=== PATIENT | male | born 1950 | race Caucasian/White ===

== ENCOUNTER 2021-10-27 21:26 | Emergency (ER) | payer MEDICARE, OTHER, SELFPAY ==
--- NOTE | 2021-10-27 21:35 | ED.PSYCH ---
HPI - Psych <Serafin Anderson DO - Last Filed: 11/09/21 04:35> General Chief Complaint: Psychiatric Symptoms Stated Complaint: SI Time Seen by Provider: 10/27/21 21:31 History of Present Illness HPI Narrative: 71-year-old male nonsmoker presents with police escort due to suicidal ideation with a plan. He had been at the [facility] contemplating jumping for a few hours and was discovered by police and brought here. He admits to thoughts of suicide and feeling overwhelmed. He states that his had found out about more than 1 extramarital affair and the possibility of a child as a consequence of 1 of these affairs. He recently initiated the process of divorce and left their home in [place] and is living in an apartment. He states he has very little in the way of support. He had at various times in his life been seen by a mental health provider and had been on various antidepressants but has not been on anything in the past few months. He does have a firearm at home but states it is not functioning. He admits that he is a pathological liar and states that he feels hopeless and just wants to . Related Data Home Medications Medication Instructions Recorded Confirmed brinzolamide 1 %-brimonidine 0.2 % 1 drp EYE-BOTH DAILY 10/28/21 10/28/21 eye drops,suspension (Simbrinza) simvastatin 40 mg tablet 40 mg PO QPM 10/28/21 10/28/21 Allergies Allergy/AdvReac Type Severity Reaction Status Date / Time No Known Drug Allergies Allergy Verified 10/29/21 08:05 Review of Systems <Serafin Anderson DO - Last Filed: 11/09/21 04:35> Review of Systems Narrative: GENERAL: Denies chills, fatigue, malaise, fever, sweats. HEENT: Denies sinus pain, ear pain, sore throat, difficulty swallowing, dizziness. RESPIRATORY: Denies dyspnea, cough, wheezing, hemoptysis, sputum. CARDIOVASCULAR: Denies chest pain, palpitations, orthopnea, edema, GASTROINTESTINAL: Denies nausea, vomiting, abdominal pain, diarrhea, constipation, melena. : Denies dysuria, frequency, incontinence, hematuria, urinary retention. MUSCULOSKELETAL: denies weakness, joint pain, or bony pain SKIN: Denies rash, skin lesions, or other NEUROLOGIC: Denies weakness, headache, numbness, change in speech, confusion, seizures, incoordination. PSYCHIATRIC: See HPI 12 point review of systems is negative except for those stated above Exam <Serafin Anderson DO - Last Filed: 11/09/21 04:35> Narrative Exam Narrative: GENERAL: [71] year old patient appears stated age. Well-developed patient, in mild distress. HEAD: Atraumatic. Normocephalic. EYES: Pupils equal round and reactive. Extraocular motions intact. No scleral icterus. No injection or drainage. ENT: Nose without bleeding, purulent drainage. Throat without erythema, tonsillar hypertrophy or exudate. Airway patent. NECK: Trachea midline. Non tender CARDIOVASCULAR: Regular rate and rhythm without murmurs, gallops, or rubs. RESPIRATORY: Clear to auscultation. Breath sounds equal bilaterally. No wheezes, rales, or rhonchi. GASTROINTESTINAL: Abdomen soft, non-tender, nondistended. EXTREMITIES: No edema or joint tenderness. BACK: Nontender without deformity or crepitance. No flank tenderness. NEURO: AOx3. SKIN: No rash or erythema of visible areas Initial Vital Signs Initial Vital Signs: Vital Signs Temperature 98.7 F 10/27/21 21:45 Pulse Rate 72 10/27/21 21:45 Respiratory Rate 16 10/27/21 21:45 Blood Pressure 181/84 H 10/27/21 21:45 Pulse Oximetry 97 10/27/21 21:45 Oxygen Delivery Method 10/27/21 21:45 <Thai Mejia MD - Last Filed: 11/10/21 07:19> Initial Vital Signs Initial Vital Signs: Vital Signs Temperature 98.7 F 10/27/21 21:45 Pulse Rate 72 10/27/21 21:45 Respiratory Rate 16 10/27/21 21:45 Blood Pressure 181/84 H 10/27/21 21:45 Pulse Oximetry 97 10/27/21 21:45 Oxygen Delivery Method 10/27/21 21:45 <Chester Marley DO - Last Filed: 10/29/21 02:15> Initial Vital Signs Initial Vital Signs: Vital Signs Temperature 98.7 F 10/27/21 21:45 Pulse Rate 72 10/27/21 21:45 Respiratory Rate 16 10/27/21 21:45 Blood Pressure 181/84 H 10/27/21 21:45 Pulse Oximetry 97 10/27/21 21:45 Oxygen Delivery Method 10/27/21 21:45 Course <Serafin Anderson DO - Last Filed: 11/09/21 04:35> Orders Ordered: Discontinued Medications Alprazolam (Alprazolam 0.5 Mg Tablet) 0.5 mg PO BEDTIME [facility] Last Admin: 10/28/21 20:30 Dose: 0.5 mg Documented By: RL Atorvastatin Calcium (Atorvastatin 20 Mg Tablet) 40 mg PO NOW ONE Stop: 10/28/21 16:53 Last Admin: 10/28/21 17:18 Dose: 40 mg Documented By: RL Brimonidine Tartrate (Brimonidine 0.2% Ophth 5 Ml) 1 drops EYE-BOTH TID [facility] Last Admin: 10/29/21 08:05 Dose: 1 drops Documented By: Admin: 10/28/21 20:30 Dose: 1 drops Documented By: Admin: 10/28/21 20:29 Dose: Not Given Documented By: CATHLEEN Vital Signs Vital signs: Vital Signs - 8 hr 10/28/21 23:11 Temperature 97.7 F Pulse Rate 59 L Respiratory Rate 18 Blood Pressure 120/62 Oxygen Delivery Method Room Air <Thai Mejia MD - Last Filed: 11/10/21 07:19> Course Course Narrative: October 28, 2021 at 7:00 a.m.. Sign out from Dr. Anderson, awaiting for social work evaluation. Patient has been medically cleared. 8:15 a.m.. I introduced myself to patient. He is in no distress. The understands we have to wait for social work to arrive this morning. Awaiting for evaluation. 6:00 p.m.. Sign out to Dr. Marley patient boarding overnight waiting for bed in the morning. Nighttime Xanax has been ordered for tonight to help him sleep. Orders Ordered: Discontinued Medications Alprazolam (Alprazolam 0.5 Mg Tablet) 0.5 mg PO BEDTIME [facility] Last Admin: 10/28/21 20:30 Dose: 0.5 mg Documented By: CATHLEEN Atorvastatin Calcium (Atorvastatin 20 Mg Tablet) 40 mg PO NOW ONE Stop: 10/28/21 16:53 Last Admin: 10/28/21 17:18 Dose: 40 mg Documented By: CATHLEEN Brimonidine Tartrate (Brimonidine 0.2% Ophth 5 Ml) 1 drops EYE-BOTH TID [facility] Last Admin: 10/29/21 08:05 Dose: 1 drops Documented By: Admin: 10/28/21 20:30 Dose: 1 drops Documented By: Admin: 10/28/21 20:29 Dose: Not Given Documented By: CATHLEEN Reevaluation(s) Reevaluation #1: Patient in room in no distress at this time. Understands treatment plan to stay overnight and transferred tomorrow to [facility] Time: 18:32 Consultations Consultation #1: Spoke with patient and as well as psychiatric social worker/Maureen, at this time, patient has been accepted at [facility] in [place], bed available 10:00 a.m. tomorrow. They do understand need to stay overnight a more day. We will transport patient tomorrow. Time: 17:29 Vital Signs Vital signs: Vital Signs - 8 hr 10/28/21 23:11 Temperature 97.7 F Pulse Rate 59 L Respiratory Rate 18 Blood Pressure 120/62 Oxygen Delivery Method Room Air <Chester Marley DO - Last Filed: 10/29/21 02:15> Orders Ordered: Discontinued Medications Alprazolam (Alprazolam 0.5 Mg Tablet) 0.5 mg PO BEDTIME [facility] Last Admin: 10/28/21 20:30 Dose: 0.5 mg Documented By: CATHLEEN Atorvastatin Calcium (Atorvastatin 20 Mg Tablet) 40 mg PO NOW ONE Stop: 10/28/21 16:53 Last Admin: 10/28/21 17:18 Dose: 40 mg Documented By: CATHLEEN Brimonidine Tartrate (Brimonidine 0.2% Ophth 5 Ml) 1 drops EYE-BOTH TID [facility] Last Admin: 10/29/21 08:05 Dose: 1 drops Documented By: Admin: 10/28/21 20:30 Dose: 1 drops Documented By: Admin: 10/28/21 20:29 Dose: Not Given Documented By: CATHLEEN Vital Signs Vital signs: Vital Signs - 8 hr 10/28/21 23:11 Temperature 97.7 F Pulse Rate 59 L Respiratory Rate 18 Blood Pressure 120/62 Oxygen Delivery Method Room Air MDM - Psych <Serafin Anderson DO - Last Filed: 11/09/21 04:35> Lab Data Result diagrams: 10/27/21 21:55 10/27/21 21:55 Labs: Lab Results 10/27/21 10/27/21 10/27/21 Range/Units 21:55 21:55 21:55 WBC 10.0 (4.5-11.0) X10^3/uL RBC 4.44 L (4.5-5.9) X10^6/uL Hgb 13.9 (13.5-17.5) g/dL Hct 40.3 L (41-53) % MCV 90.8 (80-100) fL MCH 31.4 (26-34) PG MCHC 34.6 (30-36) % RDW 13.1 (11.6-14.8) % Plt Count 233 (150-400) X10^3/uL Neut % (Auto) 85.8 H (50-75) % Lymph % (Auto) 7.2 L (25-40) % [place] % (Auto) 4.5 (3-14) % Eos % (Auto) 0.8 L (2-4) % Baso % (Auto) 1.7 (0-2) % Neut # (Auto) 8600 H (9882-6406) /uL Lymph # (Auto) 700 L (2853-2841) /uL [place]calfe # (Auto) 500 (0-900) /uL Eos # (Auto) 100 (0-450) /uL Baso # (Auto) 200 H (0-100) /uL Sodium 140 (137-145) mmol/L Potassium 3.9 (3.4-5.1) mmol/L Chloride 107 (98-107) mmol/L Carbon Dioxide 22 (22-32) mmol/L BUN 14 (9-20) mg/dL Creatinine 0.90 (0.66-1.25) mg/dL Estimated GFR > 60 (>60) mL/min BUN/Creatinine Ratio 15.6 (6-22) Glucose 136 H (80-110) mg/dL Calcium 9.2 (8.4-10.2) mg/dL Total Bilirubin 0.8 (0.2-1.3) mg/dL AST 42 (17-59) IU/L ALT 30 (<50) IU/L Alkaline Phosphatase 42 (38-126) U/L Total Protein 8.0 (6.3-8.2) g/dL Albumin 4.8 (3.5-5.0) g/dL Globulin 3.2 (1.7-4.1) g/dL Albumin/Globulin Ratio 1.5 (1.0-2.8) TSH 0.71 (0.47-4.68) uIU/mL U Opiates 300ng/mL cut (Negative) Ur Oxycodone Screen (Negative) Urine Methadone Screen (Negative) Ur Barbiturates Screen (Negative) U Tricyclic Antidepress (Negative) Ur Phencyclidine Scrn (Negative) Ur Amphetamines Screen (Negative) U Methamphetamines Scrn (Negative) Ur MDMA Scrn (Ecstasy) (Negative) U Benzodiazepines Scrn (Negative) Urine Cocaine Screen (Negative) U Marijuana (THC) Screen (Negative) Ethyl Alcohol < 10 ( - 10) mg/dL SARS-CoV-2 (PCR) (Negative) 10/27/21 10/27/21 Range/Units 21:55 21:55 WBC (4.5-11.0) X10^3/uL RBC (4.5-5.9) X10^6/uL Hgb (13.5-17.5) g/dL Hct (41-53) % MCV (80-100) fL MCH (26-34) PG MCHC (30-36) % RDW (11.6-14.8) % Plt Count (150-400) X10^3/uL Neut % (Auto) (50-75) % Lymph % (Auto) (25-40) % [place] % (Auto) (3-14) % Eos % (Auto) (2-4) % Baso % (Auto) (0-2) % Neut # (Auto) (7098-1476) /uL Lymph # (Auto) (0669-2833) /uL Metcalfe # (Auto) (0-900) /uL Eos # (Auto) (0-450) /uL Baso # (Auto) (0-100) /uL Sodium (137-145) mmol/L Potassium (3.4-5.1) mmol/L Chloride (98-107) mmol/L Carbon Dioxide (22-32) mmol/L BUN (9-20) mg/dL Creatinine (0.66-1.25) mg/dL Estimated GFR (>60) mL/min BUN/Creatinine Ratio (6-22) Glucose (80-110) mg/dL Calcium (8.4-10.2) mg/dL Total Bilirubin (0.2-1.3) mg/dL AST (17-59) IU/L ALT (<50) IU/L Alkaline Phosphatase (38-126) U/L Total Protein (6.3-8.2) g/dL Albumin (3.5-5.0) g/dL Globulin (1.7-4.1) g/dL Albumin/Globulin Ratio (1.0-2.8) TSH (0.47-4.68) uIU/mL U Opiates 300ng/mL cut Negative (Negative) Ur Oxycodone Screen Negative (Negative) Urine Methadone Screen Negative (Negative) Ur Barbiturates Screen Negative (Negative) U Tricyclic Antidepress Negative (Negative) Ur Phencyclidine Scrn Negative (Negative) Ur Amphetamines Screen Negative (Negative) U Methamphetamines Scrn Negative (Negative) Ur MDMA Scrn (Ecstasy) Negative (Negative) U Benzodiazepines Scrn Negative (Negative) Urine Cocaine Screen Negative (Negative) U Marijuana (THC) Screen Negative (Negative) Ethyl Alcohol ( - 10) mg/dL SARS-CoV-2 (PCR) Negative (Negative) Urine Dip Bedside Urine Glucose Negative Bedside Urine Bilirubin - Negative Bedside Urine Ketone +/- 5 Urine Specific [place] 1.030 Bedside Urine Occult Blood - Negative Bedside Urine pH 5.5 Bedside Urine Protein - Negative Bedside Urine Urobilinogen - Negative Bedside Urine Nitrite - Negative Bedside Urine Leukocytes - Negative Esterase MDM Narrative Medical decision making narrative: Patient presents by police escort [place] [address] [place]. He is here of his own volition. He is medically cleared and social work consultation has been ordered. Patient signed out to Dr. Mejia for final disposition <Thai Mejia MD - Last Filed: 11/10/21 07:19> Differential Diagnosis Differential diagnosis: Likely depression, acute anxiety and other (SI) Lab Data Labs: Lab Results 10/27/21 10/27/21 10/27/21 Range/Units 21:55 21:55 21:55 WBC 10.0 (4.5-11.0) X10^3/uL RBC 4.44 L (4.5-5.9) X10^6/uL Hgb 13.9 (13.5-17.5) g/dL Hct 40.3 L (41-53) % MCV 90.8 (80-100) fL MCH 31.4 (26-34) PG MCHC 34.6 (30-36) % RDW 13.1 (11.6-14.8) % Plt Count 233 (150-400) X10^3/uL Neut % (Auto) 85.8 H (50-75) % Lymph % (Auto) 7.2 L (25-40) % [place] % (Auto) 4.5 (3-14) % Eos % (Auto) 0.8 L (2-4) % Baso % (Auto) 1.7 (0-2) % Neut # (Auto) 8600 H (4727-1092) /uL Lymph # (Auto) 700 L (4372-6477) /uL [place] # (Auto) 500 (0-900) /uL Eos # (Auto) 100 (0-450) /uL Baso # (Auto) 200 H (0-100) /uL Sodium 140 (137-145) mmol/L Potassium 3.9 (3.4-5.1) mmol/L Chloride 107 (98-107) mmol/L Carbon Dioxide 22 (22-32) mmol/L BUN 14 (9-20) mg/dL Creatinine 0.90 (0.66-1.25) mg/dL Estimated GFR > 60 (>60) mL/min BUN/Creatinine Ratio 15.6 (6-22) Glucose 136 H (80-110) mg/dL Calcium 9.2 (8.4-10.2) mg/dL Total Bilirubin 0.8 (0.2-1.3) mg/dL AST 42 (17-59) IU/L ALT 30 (<50) IU/L Alkaline Phosphatase 42 (38-126) U/L Total Protein 8.0 (6.3-8.2) g/dL Albumin 4.8 (3.5-5.0) g/dL Globulin 3.2 (1.7-4.1) g/dL Albumin/Globulin Ratio 1.5 (1.0-2.8) TSH 0.71 (0.47-4.68) uIU/mL U Opiates 300ng/mL cut (Negative) Ur Oxycodone Screen (Negative) Urine Methadone Screen (Negative) Ur Barbiturates Screen (Negative) U Tricyclic Antidepress (Negative) Ur Phencyclidine Scrn (Negative) Ur Amphetamines Screen (Negative) U Methamphetamines Scrn (Negative) Ur MDMA Scrn (Ecstasy) (Negative) U Benzodiazepines Scrn (Negative) Urine Cocaine Screen (Negative) U Marijuana (THC) Screen (Negative) Ethyl Alcohol < 10 ( - 10) mg/dL SARS-CoV-2 (PCR) (Negative) 10/27/21 10/27/21 Range/Units 21:55 21:55 WBC (4.5-11.0) X10^3/uL RBC (4.5-5.9) X10^6/uL Hgb (13.5-17.5) g/dL Hct (41-53) % MCV (80-100) fL MCH (26-34) PG MCHC (30-36) % RDW (11.6-14.8) % Plt Count (150-400) X10^3/uL Neut % (Auto) (50-75) % Lymph % (Auto) (25-40) % [place] % (Auto) (3-14) % Eos % (Auto) (2-4) % Baso % (Auto) (0-2) % Neut # (Auto) (9407-0626) /uL Lymph # (Auto) (0912-0286) /uL [place] # (Auto) (0-900) /uL Eos # (Auto) (0-450) /uL Baso # (Auto) (0-100) /uL Sodium (137-145) mmol/L Potassium (3.4-5.1) mmol/L Chloride (98-107) mmol/L Carbon Dioxide (22-32) mmol/L BUN (9-20) mg/dL Creatinine (0.66-1.25) mg/dL Estimated GFR (>60) mL/min BUN/Creatinine Ratio (6-22) Glucose (80-110) mg/dL Calcium (8.4-10.2) mg/dL Total Bilirubin (0.2-1.3) mg/dL AST (17-59) IU/L ALT (<50) IU/L Alkaline Phosphatase (38-126) U/L Total Protein (6.3-8.2) g/dL Albumin (3.5-5.0) g/dL Globulin (1.7-4.1) g/dL Albumin/Globulin Ratio (1.0-2.8) TSH (0.47-4.68) uIU/mL U Opiates 300ng/mL cut Negative (Negative) Ur Oxycodone Screen Negative (Negative) Urine Methadone Screen Negative (Negative) Ur Barbiturates Screen Negative (Negative) U Tricyclic Antidepress Negative (Negative) Ur Phencyclidine Scrn Negative (Negative) Ur Amphetamines Screen Negative (Negative) U Methamphetamines Scrn Negative (Negative) Ur MDMA Scrn (Ecstasy) Negative (Negative) U Benzodiazepines Scrn Negative (Negative) Urine Cocaine Screen Negative (Negative) U Marijuana (THC) Screen Negative (Negative) Ethyl Alcohol ( - 10) mg/dL SARS-CoV-2 (PCR) Negative (Negative) Urine Dip Bedside Urine Glucose Negative Bedside Urine Bilirubin - Negative Bedside Urine Ketone +/- 5 Urine Specific [place] 1.030 Bedside Urine Occult Blood - Negative Bedside Urine pH 5.5 Bedside Urine Protein - Negative Bedside Urine Urobilinogen - Negative Bedside Urine Nitrite - Negative Bedside Urine Leukocytes - Negative Esterase ECG Data Interpretation: Sinus rhythm rate [address] elevation or depression <Chester Marley DO - Last Filed: 10/29/21 02:15> Lab Data Labs: Lab Results 10/27/21 10/27/21 10/27/21 Range/Units 21:55 21:55 21:55 WBC 10.0 (4.5-11.0) X10^3/uL RBC 4.44 L (4.5-5.9) X10^6/uL Hgb 13.9 (13.5-17.5) g/dL Hct 40.3 L (41-53) % MCV 90.8 (80-100) fL MCH 31.4 (26-34) PG MCHC 34.6 (30-36) % RDW 13.1 (11.6-14.8) % Plt Count 233 (150-400) X10^3/uL Neut % (Auto) 85.8 H (50-75) % Lymph % (Auto) 7.2 L (25-40) % [place]cal[place] % (Auto) 4.5 (3-14) % Eos % (Auto) 0.8 L (2-4) % Baso % (Auto) 1.7 (0-2) % Neut # (Auto) 8600 H (9463-5563) /uL Lymph # (Auto) 700 L (9935-6150) /uL [place] # (Auto) 500 (0-900) /uL Eos # (Auto) 100 (0-450) /uL Baso # (Auto) 200 H (0-100) /uL Sodium 140 (137-145) mmol/L Potassium 3.9 (3.4-5.1) mmol/L Chloride 107 (98-107) mmol/L Carbon Dioxide 22 (22-32) mmol/L BUN 14 (9-20) mg/dL Creatinine 0.90 (0.66-1.25) mg/dL Estimated GFR > 60 (>60) mL/min BUN/Creatinine Ratio 15.6 (6-22) Glucose 136 H (80-110) mg/dL Calcium 9.2 (8.4-10.2) mg/dL Total Bilirubin 0.8 (0.2-1.3) mg/dL AST 42 (17-59) IU/L ALT 30 (<50) IU/L Alkaline Phosphatase 42 (38-126) U/L Total Protein 8.0 (6.3-8.2) g/dL Albumin 4.8 (3.5-5.0) g/dL Globulin 3.2 (1.7-4.1) g/dL Albumin/Globulin Ratio 1.5 (1.0-2.8) TSH 0.71 (0.47-4.68) uIU/mL U Opiates 300ng/mL cut (Negative) Ur Oxycodone Screen (Negative) Urine Methadone Screen (Negative) Ur Barbiturates Screen (Negative) U Tricyclic Antidepress (Negative) Ur Phencyclidine Scrn (Negative) Ur Amphetamines Screen (Negative) U Methamphetamines Scrn (Negative) Ur MDMA Scrn (Ecstasy) (Negative) U Benzodiazepines Scrn (Negative) Urine Cocaine Screen (Negative) U Marijuana (THC) Screen (Negative) Ethyl Alcohol < 10 ( - 10) mg/dL SARS-CoV-2 (PCR) (Negative) 10/27/21 10/27/21 Range/Units 21:55 21:55 WBC (4.5-11.0) X10^3/uL RBC (4.5-5.9) X10^6/uL Hgb (13.5-17.5) g/dL Hct (41-53) % MCV (80-100) fL MCH (26-34) PG MCHC (30-36) % RDW (11.6-14.8) % Plt Count (150-400) X10^3/uL Neut % (Auto) (50-75) % Lymph % (Auto) (25-40) % [place] % (Auto) (3-14) % Eos % (Auto) (2-4) % Baso % (Auto) (0-2) % Neut # (Auto) (5317-2982) /uL Lymph # (Auto) (9361-9227) /uL [place] # (Auto) (0-900) /uL Eos # (Auto) (0-450) /uL Baso # (Auto) (0-100) /uL Sodium (137-145) mmol/L Potassium (3.4-5.1) mmol/L Chloride (98-107) mmol/L Carbon Dioxide (22-32) mmol/L BUN (9-20) mg/dL Creatinine (0.66-1.25) mg/dL Estimated GFR (>60) mL/min BUN/Creatinine Ratio (6-22) Glucose (80-110) mg/dL Calcium (8.4-10.2) mg/dL Total Bilirubin (0.2-1.3) mg/dL AST (17-59) IU/L ALT (<50) IU/L Alkaline Phosphatase (38-126) U/L Total Protein (6.3-8.2) g/dL Albumin (3.5-5.0) g/dL Globulin (1.7-4.1) g/dL Albumin/Globulin Ratio (1.0-2.8) TSH (0.47-4.68) uIU/mL U Opiates 300ng/mL cut Negative (Negative) Ur Oxycodone Screen Negative (Negative) Urine Methadone Screen Negative (Negative) Ur Barbiturates Screen Negative (Negative) U Tricyclic Antidepress Negative (Negative) Ur Phencyclidine Scrn Negative (Negative) Ur Amphetamines Screen Negative (Negative) U Methamphetamines Scrn Negative (Negative) Ur MDMA Scrn (Ecstasy) Negative (Negative) U Benzodiazepines Scrn Negative (Negative) Urine Cocaine Screen Negative (Negative) U Marijuana (THC) Screen Negative (Negative) Ethyl Alcohol ( - 10) mg/dL SARS-CoV-2 (PCR) Negative (Negative) Urine Dip Bedside Urine Glucose Negative Bedside Urine Bilirubin - Negative Bedside Urine Ketone +/- 5 Urine Specific [place] 1.030 Bedside Urine Occult Blood - Negative Bedside Urine pH 5.5 Bedside Urine Protein - Negative Bedside Urine Urobilinogen - Negative Bedside Urine Nitrite - Negative Bedside Urine Leukocytes - Negative Esterase MDM Narrative Medical decision making narrative: Patient [facility] by police escort [facility] contemplating suicide. He is here of his own volition. He is medically cleared and social work consultation has been ordered. Patient signed out to Dr. Mejia for final disposition Dr marley: overnight 10/28-10/29 received turned over. Patient voluntary. Is medically stable. Has been stable overnight. No specific intervention by myself. Will continue with transport in the morning. Discharge Plan Departure Patient Disposition: Xfer Psychiatric Hosp Clinical Impression: Suicidal ideation, Depression
[2021-10-27 21:45] VITALS: BP 181/84; PULSE 72; RESP 16; TEMP 37.1; O2SAT 97; BMI 24.2
[2021-10-27 22:12] LABS: Add Manual Diff / Slide Review NO; Basophils Absolute Auto 200 /uL (0-100); Basophils Percent Auto 1.7 % (0-2); Eosinophils Absolute Auto 100 /uL (0-450); Eosinophils Percent Auto 0.8 % (2-4); Hematocrit 40.3 % (41-53); Hemoglobin 13.9 g/dL (13.5-17.5); Lymphocytes Absolute Auto 700 /uL (1100-4500); Lymphocytes Percent Auto 7.2 % (25-40); Mean Corpuscular HGB Conc 34.6 % (30-36); Mean Corpuscular Hemoglobin 31.4 PG (26-34); Mean Corpuscular Volume 90.8 fL (80-100); Monocytes Absolute Auto 500 /uL (0-900); Monocytes Percent Auto 4.5 % (3-14); Neutrophils Absolute Auto 8600 /uL (1500-7000); Neutrophils Percent Auto 85.8 % (50-75); Platelet Count 233 X10^3/uL (150-400); Red Blood Cell Count 4.44 X10^6/uL (4.5-5.9); Red Cell Distribution Width 13.1 % (11.6-14.8)
[2021-10-27 22:23] LABS: Alanine Aminotransferase 30 IU/L (<50); Albumin 4.8 g/dL (3.5-5.0); Albumin Globulin Ratio 1.5 (1.0-2.8); Alkaline Phosphatase 42 U/L (38-126); Aspartate Aminotransferase 42 IU/L (17-59); BUN Creatinine Ratio 15.6 (6-22); Bilirubin Total 0.8 mg/dL (0.2-1.3); Blood Urea Nitrogen 14 mg/dL (9-20); Calcium 9.2 mg/dL (8.4-10.2); Carbon Dioxide 22 mmol/L (22-32); Chloride 107 mmol/L (98-107); Estimated Glomerular Filt Rate > 60 mL/min (>60); Ethanol (ETOH) < 10 mg/dL; Globulin 3.2 g/dL (1.7-4.1); Glucose 136 mg/dL (80-110); HEMOLYSIS < 15 (0-50); Potassium 3.9 mmol/L (3.4-5.1); Sodium 140 mmol/L (137-145)
[2021-10-27 22:33] LABS: Ur Creatinine 50 (Normal); Ur Specific Gravity >1.025 (Normal); Urine pH 5 (Normal)
[2021-10-27 22:35] LABS: UR Morphine/Opiate cutoff 300 Negative (Negative); Urine Amphetamines Negative (Negative); Urine Barbiturates Negative (Negative); Urine Benzodiazepines Negative (Negative); Urine Cocaine Negative (Negative); Urine MDMA Negative (Negative); Urine Methadone Negative (Negative); Urine Methamphetamines Negative (Negative); Urine Oxycodone Negative (Negative); Urine Phencyclidine Negative (Negative); Urine Tetrahydrocannabinol Negative (Negative); Urine Tricyclic Antidepressant Negative (Negative)
[2021-10-27 22:56] LABS: TSH w/ Reflex to FT4 0.71 uIU/mL (0.47-4.68)
--- NOTE | 2021-10-27 23:00 | PC.NURSE ---
Pt. is calm and lying down, trying to rest. Pt. keeps asking if MD will see him soon. This PCT stated that MD is currently seeing new pt. at this time and will be in to see him when MD is available. Continuing to perform safety monitoring Q15 mins
--- NOTE | 2021-10-27 23:16 | PC.NURSE ---
Pt. is anxious, asking to borrow a phone [employer]se[employer] technician. This PCT provided one for him to use in room. Pt. asking about lab results. Notified nurse.
[2021-10-27 23:49] LABS: COVID19 -Nasal RAPID Negative (Negative)
[2021-10-28 07:32] VITALS: BP 148/60; PULSE 67; RESP 18; O2SAT 98
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
[2021-10-28] MEDS: ATORVASTATIN 20 MG TABLET 40 MG PO (17:18)
--- NOTE | 2021-10-28 17:35 | CM.SWNOTE ---
LEAD MANUFACTURING TECHNICIAN Note LEAD MANUFACTURING TECHNICIAN calls [facility] intake and it is reported that they can review patient, LEAD MANUFACTURING TECHNICIAN faxes clinicals for referral. LEAD MANUFACTURING TECHNICIAN calls [facility] intake and it is reported that they can review patient, LEAD MANUFACTURING TECHNICIAN faxes clinicals for referral. [facility] intake-Roxi reports that patient is accepted to [address] [place] [address], she reports that he can arrive via POV or EMS. LEAD MANUFACTURING TECHNICIAN reviews this with ED provider who endorses preference for patient to transfer via EMS. Accepting provider is Dr. Fernandez, nurse to nurse is: Ph. # [phone]. [facility] sets up transport. LEAD MANUFACTURING TECHNICIAN provides address and phone number for to provide patient's belongings and home medications. Plan: patient to transfer to [facility] tomorrow morning for voluntary inpatient bed. Maureen Garcia, DRAPERY COUNSELOR
[2021-10-28] MEDS: BRIMONIDINE 0.2% OPHTH 5 ML 1 DROPS EYE-BOTH (20:30)
[2021-10-28] MEDS: ALPRAZolam 0.5 MG TABLET PO (20:30)
[2021-10-28 23:11] VITALS: BP 120/62; PULSE 59; RESP 18; TEMP 36.5
[2021-10-29] MEDS: BRIMONIDINE 0.2% OPHTH 5 ML 1 DROPS EYE-BOTH (08:05)
[2021-10-29 08:06] VITALS: BP 153/69; PULSE 62; RESP 18; TEMP 36.4; O2SAT 98
== END 2021-10-29 08:32 ==
PROVIDERS: Emergency Medicine; Emergency Provider Emergency Medicine
DX: R45.851 Suicidal ideations (principal); F32.A Depression, unspecified; Z20.822 Contact with and (suspected) exposure to COVID-19; R03.0 Elevated blood-pressure reading, without diagnosis of hypertension
CPT/HCPCS: 36415; 80053; 80305; 80320; 81003; 84443; 85025; 87635; 93005; 93010; 99284; C9803